=== PATIENT | female | born 1985 | race Two or more races ===

== ENCOUNTER 2024-06-11 20:08 | Emergency (ER) | payer OTHER ==
[~2024-06-11] VITALS: Ht 162.6 cm; Wt 65.8 kg
[2024-06-11] MEDS ORDERED: METH-647 PO (21:27)
[2024-06-11] MEDS ORDERED: IBUP-1490 PO (21:27)
[2024-06-11 21:35] VITALS: BP 101/66; TEMP 98.6; O2SAT 99
[2024-06-11] MEDS ORDERED: KETOROLAC TROMETHAMINE INJ 30 MG/ML VIAL ONE (21:43)
[2024-06-11] MEDS ORDERED: METHOCARBAMOL (500MG) 500 MG TABLET ONE (21:43)
[2024-06-11] MEDS: METHOCARBAMOL (500MG) 500 MG TABLET PO ONE (21:49)
[2024-06-11] MEDS: KETOROLAC TROMETHAMINE INJ 30 MG/ML VIAL IM ONE (21:49)
== END 2024-06-11 21:49 | disposition home or self-care (01) ==
LOC: ER 20:55
DX: M25.461 Effusion, right knee (principal); M79.652 Pain in left thigh; M25.561 Pain in right knee; M54.31 Sciatica, right side; Z60.2 Problems related to living alone
CPT/HCPCS: 99283; 96372; J1885